=== PATIENT | male | born 1965 | race Caucasian/White ===

== ENCOUNTER 2017-01-08 14:31 | Inpatient (IN) | payer MEDICAID, OTHER ==
[~2017-01-08] VITALS: Ht 195.6 cm; Wt 122.4 kg
[~2017-01-08 14:31] MED LIST: BACT800T5 PO; CLIN1CAP5 PO; TRAM50 PO; TRIA.1%T TOP
[2017-01-08 14:33] VITALS: BP 137/89; PULSE 97; RESP 14; TEMP 99.1; O2SAT 99
--- NOTE | 2017-01-08 14:50 | PD ---
Physical Exam Time Seen by Provider: 14:48 Narrative 51-year-old male sent by the [facility]. He was called today and told that his platelet count is 14. He has history of his platelets being 36 one month ago. Also states his blood blood cell count, white blood cell count, and hemoglobin were low also. Denies anticoagulant therapy. Patient reports headache 4 days and multiple bruises. Denies chest pain, shortness of breath, abdominal pain, vomiting. Patient seen in triage. Vital signs reviewed. Patient awaiting bed placement. Data Data Last Documented VS Vital Signs Date Time Temp Pulse Resp B/P (MAP) Pulse Ox O2 Delivery O2 Flow Rate FiO2 01/08/17 14:33 99.1 97 14 137/89 (105) 99 MDM Supervised Visit with SHARLENE: Kimberli Harrison Jan 08, 2017 14:50
[2017-01-08 16:13] LABS: AUTOMATED NEUTROPHIL # 2.7 TH/MM3 (1.8-7.7); BASOPHIL % 0.5 % (0.0-2.0); EOSINOPHIL # 0.1 TH/MM3 (0-0.4); EOSINOPHIL % 1.9 % (0.0-4.0); HEMATOCRIT 32.6 % (39.0-51.0); LYMPH % 13.1 % (9.0-44.0); LYMPHOCYTE # 0.5 TH/MM3 (1.0-4.8); MEAN CELL VOLUME 100.4 FL (80.0-100.0); MEAN CORPUSCULAR HEMOGLOBIN 34.8 PG (27.0-34.0); MEAN CORPUSCULAR HGB CONC 34.7 % (32.0-36.0); MONO % 15.8 % (0.0-8.0); NEUT % 68.7 % (16.0-70.0); PLATELET COUNT 22 TH/MM3 (150-450); RED BLOOD COUNT 3.25 MIL/MM3 (4.50-5.90); RED CELL DISTRIBUTION WIDTH 15.1 % (11.6-17.2); WHITE BLOOD COUNT 3.9 TH/MM3 (4.0-11.0)
[2017-01-08 16:16] LABS: HEMO FLAGS AUTO DIFF
[2017-01-08 16:31] LABS: APTT (PATIENT) 34.7 SEC (24.3-30.1); INTERNATIONAL NORMALIZED RATIO 1.6 RATIO
[2017-01-08 16:37] LABS: BICARBONATE 26.7 MEQ/L (21.0-32.0); POTASSIUM 4.5 MEQ/L (3.5-5.1)
[2017-01-08 16:54] LABS: PLATELET ESTIMATE SMEAR LOW (NORMAL); PLATELET MORPHOLOGY NORMAL (NORMAL); SCAN/DIFF AUTO DIFF CONFIRMED
--- NOTE | 2017-01-08 17:33 | PD ---
HPI Chief Complaint: Abnormal Results Time Seen by Provider: 17:29 Travel History International Travel<30 days: No Contact w/Intl Traveler<30days: No Traveled to known affect area: No History of Present Illness HPI 51 YO M presents to the ED for evaluation of abnormal lab result at the [facility]. The patient had labs drawn yesterday, states that he was called today and told that he had "platelets of 14." And was instructed to go to the nearest emergency room. The patient states that he has been undergoing evaluation at the [facility] for approximately one year for similar issues. On presentation he complains of dull , bifrontal headache 4 days. Maximally 8 out of 10, currently 4 out of 10. He denies associated vision changes, dizziness, nausea or vomiting. He has not treated at home. He also complains of skin changes over the last year including increased bruising without known injury. He endorses low appetite and states that he has 2 bowel movements a day. He denies melena, hematochezia , BRBPR. He endorses intermittent dark color to his urine without increased urinary urgency or dysuria. He endorses drinking "a 4 pack of tall boys per day 26 years. He smokes half pack a day since teenage years. He states that he was sent to [place] to undergo panendoscopy a few months ago, but was unable to have the exam due to his abnormal lab values. [facility] Past Medical History Diminished Hearing: No Gout: Yes Integumentary: Yes (PSORIASIS) Social History Alcohol Use: Yes (8 BEERS A DAY) Tobacco Use: Yes (1/2 PPD) Substance Use: No Allergies-Medications (Allergen,Severity, Reaction): Coded Allergies: codeine (Unverified Allergy, Severe, 01/08/17) Reported Meds & Prescriptions Reported Meds & Active Scripts Active No Active Prescriptions or Reported Medications Review of Systems Except as stated in HPI: all other systems reviewed are Neg Physical Exam Narrative GENERAL: Well-nourished, well-developed pleasant white male in no acute distress. SKIN: Focused skin assessment warm/dry. Multiple bruises over the skin surface. HEAD: Normocephalic. EYES: No scleral icterus. No injection or drainage. NECK: Supple, trachea midline. No JVD or lymphadenopathy. CARDIOVASCULAR: Regular rate and rhythm without murmurs, gallops, or rubs. RESPIRATORY: Breath sounds clear and equal bilaterally. No accessory muscle use. GASTROINTESTINAL: Abdomen soft, non-tender, nondistended. Active bowel sounds. RECTAL EXAM: No masses or tenderness, stool is brown. Guaiac positive. MUSCULOSKELETAL: No cyanosis, or edema. Moves easily from standing to sitting positions. BACK: Nontender without obvious deformity. No CVA tenderness. Data Data Last Documented VS Vital Signs Date Time Temp Pulse Resp B/P (MAP) Pulse Ox O2 Delivery O2 Flow Rate FiO2 01/08/17 18:56 73 16 155/92 (113) 99 Room Air 01/08/17 14:33 99.1 Orders Orders Basic Metabolic Panel (Bmp) (01/08/17 14:50) Complete Blood Count With Diff (01/08/17 14:50) Prothrombin Time / Inr (Pt) (01/08/17 14:50) Act Partial Throm Time (Ptt) (01/08/17 14:50) Ct Brain W/O Iv Contrast(Rout) (01/08/17 ) Urinalysis - C+S If Indicated (01/08/17 18:59) Urine Culture (01/08/17 18:57) Diet Regular Basic (01/09/17 Breakfast) Ceftriaxone Inj (Rocephin Inj) (01/08/17 20:00) Consult Gastroenterology (01/08/17 ) Consult Hematology (01/08/17 ) Ibuprofen (Motrin) (01/08/17 20:15) Hepatic Functional Panel (01/08/17 20:11) Labs Laboratory Tests Test 01/08/17 15:55 01/08/17 18:57 White Blood Count 3.9 TH/MM3 Red Blood Count 3.25 MIL/MM3 Hemoglobin 11.3 GM/DL Hematocrit 32.6 % Mean Corpuscular Volume 100.4 FL Mean Corpuscular Hemoglobin 34.8 PG Mean Corpuscular Hemoglobin Concent 34.7 % Red Cell Distribution Width 15.1 % Platelet Count 22 TH/MM3 Mean Platelet Volume 9.2 FL Neutrophils (%) (Auto) 68.7 % Lymphocytes (%) (Auto) 13.1 % Monocytes (%) (Auto) 15.8 % Eosinophils (%) (Auto) 1.9 % Basophils (%) (Auto) 0.5 % Neutrophils # (Auto) 2.7 TH/MM3 Lymphocytes # (Auto) 0.5 TH/MM3 Monocytes # (Auto) 0.6 TH/MM3 Eosinophils # (Auto) 0.1 TH/MM3 Basophils # (Auto) 0.0 TH/MM3 CBC Comment AUTO DIFF Differential Comment AUTO DIFF CONFIRMED Platelet Estimate LOW Platelet Morphology Comment NORMAL Prothrombin Time 18.0 SEC Prothromb Time International Ratio 1.6 RATIO Activated Partial Thromboplast Time 34.7 SEC Blood Urea Nitrogen 6 MG/DL Creatinine 1.05 MG/DL Random Glucose 113 MG/DL Calcium Level 8.1 MG/DL Sodium Level 138 MEQ/L Potassium Level 4.5 MEQ/L Chloride Level 105 MEQ/L Carbon Dioxide Level 26.7 MEQ/L Anion Gap 6 MEQ/L Estimat Glomerular Filtration Rate 74 ML/MIN Urine Color DARK-BROWN Urine Turbidity CLOUDY Urine pH 6.0 Urine Specific [place] 1.023 Urine Protein 100 mg/dL Urine Glucose (UA) NEG mg/dL Urine Ketones TRACE mg/dL Urine Occult Blood LARGE Urine Nitrite NEG Urine Bilirubin MOD Urine Urobilinogen 8.0 MG/DL Urine Leukocyte Esterase SMALL Urine RBC /hpf Urine WBC 26 /hpf Urine Amorphous Sediment OCC Urine Bacteria MANY /hpf Urine Mucus MANY /lpf Microscopic Urinalysis Comment CULTURE INDICATED MDM Medical Decision Making Medical Screen Exam Complete: Yes Emergency Medical Condition: Yes Differential Diagnosis cirrhosis versus GI bleed versus leukemia versus chronic alcoholism versus FRANCESCA versus metabolic derangement versus other Narrative Course 51 YO M presents to the ED for evaluation of abnormal lab result at the [facility]. The patient had labs drawn yesterday, states that he was called today and told that he had "platelets of 14." The patient states that he has been undergoing evaluation at the [facility] for approximately one year for similar issues. On presentation he complains of dull, bifrontal headache 4 days. Maximally 8/10, currently 4/10. He denies associated vision changes, dizziness, nausea or vomiting. He also complains increased bruising without known injury. He endorses low appetite. He endorses dark urine. He denies diarrhea, melena, hematochezia, BRBPR, denies dysuria. He endorses drinking "a 4 pack of tall boys per day 26 years. He smokes half pack a day since teenage years. He states that he was sent to [place] to undergo panendoscopy a few months ago, but was unable to have the exam due to his abnormal lab values. Vitals reviewed. Physical exam revealed up on the white male in no acute distress. He does have several bruises over the skin surface. No focal neuro deficits. Chest CTAB, abdomen soft, nontender. No lower extremity edema. CBC: WBC 3.9. RBCs 3.25. Hemoglobin 11.3. Hematocrit 32.6. MCV 100.4. MCH 34.8. Platelets 22. Coags: INR 1.6. BNP: BUN 6, creatinine 1.05. Calcium 8.1. UA: Dark brown, large occult blood, small leukocyte esterase, 26 WBCs, many bacteria. CT brain: Normal exam for patient this age per radiology read. Patient was administered 1 g of Rocephin, [address] with hematology and gastroenterology. Urology consult may also be appropriate for this patient. Plan to discuss with the medicine team. I spoke with Dr. Myers who agrees to accept the patient to the medicine service. Please see medicine notes for disposition. [facility] Point of Care Internal Pos. & Neg. Controls: Passed Fecal Specimen Occult Blood: Positive Scripts No Active Prescriptions or Reported Meds Vanessa Culver Jan 08, 2017 17:33
[2017-01-08 18:56] VITALS: BP 155/92; PULSE 73; RESP 16; O2SAT 99
[2017-01-08 19:29] LABS: BACTERIA, URINE MANY /hpf; BLOOD, URINE LARGE (NEG); COMMENT (UR) CULTURE INDICATED; CULTURE IF INDICATED CULTURE INDICATED; GLUCOSE,URINE NEG (NEG); KETONE, URINE TRACE mg/dL (NEG); MUCUS URINE MANY /lpf (OCC); NITRITE,URINE NEG (NEG)
[2017-01-08 19:30] LABS: URINE COLOR DARK-BROWN (YELLW/STRAW)
--- NOTE | 2017-01-08 19:57 | RADRPT ---
EXAM DATE/TIME: 01/08/2017 19:13 [facility] COMPARISON: CT BRAIN W/O CONTRAST, July 23, 2013, 9:37. INDICATIONS : Abnormal labs, altered mental status. RADIATION DOSE: 56.35 CTDIvol (mGy) MEDICAL HISTORY : gout SURGICAL HISTORY : None. ENCOUNTER: Initial ACUITY: 1 day PAIN SCALE: 7/10 LOCATION: cranial TECHNIQUE: Multiple contiguous axial images were obtained of the head. Using automated exposure control and adj ustment of the mA and/or kV according to patient size, radiation dose was kept as low as reasonably a chievable to obtain optimal diagnostic quality images. DICOM format image data is available electro nically for review and comparison. FINDINGS: CEREBRUM: The ventricles are normal for age. No evidence of midline shift, mass lesion, hemorrhage or acute in farction. No extra-axial fluid collections are seen. POSTERIOR FOSSA: The cerebellum and brainstem are intact. The 4th ventricle is midline. The cerebellopontine angle i s unremarkable. Stable cisterna magna. EXTRACRANIAL: The visualized portion of the orbits is intact. SKULL: The calvaria is intact. No evidence of skull fracture. CONCLUSION: Normal examination for a patient of this age. No significant change has occurred. Quinten Smiley MD on January 08, 2017 at 19:56 Board Certified Radiologist. This report was verified electronically.
[2017-01-08] MEDS ORDERED: cefTRIAXone INJ 1,000 MG in SODIUM CHLORIDE 0.9% INJ 100 ML IV ONE (20:00)
[2017-01-08] MEDS ORDERED: IBUPROFEN 800 MG TAB PO ONE (20:15)
[2017-01-08] MEDS ORDERED: SODIUM CHLORIDE 0.9% FLUSH 10 ML FLUSH IV FLUSH PRN ×2 (20:45)
[2017-01-08] MEDS ORDERED: LORazepam 1 MG TAB PO PRN (20:45)
[2017-01-08] MEDS ORDERED: LORazepam 2 MG/ML VIAL IV PUSH PRN ×4 (20:45)
[2017-01-08] MEDS ORDERED: NALOXONE HCL 0.4 MG/ML AMP IV PUSH PRN (20:45)
[2017-01-08] MEDS ORDERED: LORazepam 2 MG TAB PO PRN (20:45)
[2017-01-08] MEDS ORDERED: PHYTONADIONE 5 MG TAB PO ONE (20:45)
[2017-01-08] MEDS ORDERED: FLUMAZENIL 0.5 MG/5 ML VIAL IV PUSH PRN (20:45)
[2017-01-08] MEDS ORDERED: SODIUM CHLORIDE 0.9% FLUSH 10 ML FLUSH IV FLUSH SCH (21:00)
[2017-01-08 21:04] LABS: INDIRECT BILIRUBIN 1.7 MG/DL (0.0-0.8); TOTAL BILIRUBIN ADULT 4.4 MG/DL (0.2-1.0)
[2017-01-08 21:13] VITALS: BP 132/74; PULSE 80; RESP 20; TEMP 98.6; O2SAT 98
[2017-01-08] MEDS: SODIUM CHLORIDE 0.9% FLUSH 10 ML FLUSH IV FLUSH SCH (21:20)
[2017-01-08 22:47] LABS: HEMATOCRIT 28.9 % (39.0-51.0)
[2017-01-08 22:55] LABS: REVIEW FLAG FINAL
[2017-01-08 23:00] VITALS: PULSE 66
[2017-01-09] VITALS (10 sets, daily range): BP systolic 118–149; BP diastolic 69–86; PULSE 63–84; RESP 18–20; TEMP 98.6–99.1; O2SAT 87–99
--- NOTE | 2017-01-09 01:04 | HHI.HP ---
[facility] Service [facility] Primary Care Physician [facility] Admission Diagnosis hematuria, GI bleed, pancytopenia, elevated INR Diagnoses: Travel History International Travel<30 Days: No Contact w/Intl Traveler <30 Da: No Traveled to Known Affected Are: No History of Present Illness was called [place] [facility] [place] [id number] denies bleeding from anywhere was supposed to have egd and colonscopy at [facility], cancelled due to platelet 36,000 then liver sono outpatient said enlarged had blood work nausea and little bit of dry heaves in past one week did throw up a while back - he thinks throwing up was from anxiety, but not common Review of Systems Except as stated in HPI: all other systems reviewed are Neg Past Family Social History Past Medical History possible liver cirrhosis possible psoriasis Past Surgical History left index finger reattached Allergies: Coded Allergies: codeine (Unverified Allergy, Severe, 01/08/17) Family History grandfather from father side- dm grandmother from father side- in sleep mother- htn uncle- cancer Social History smokes about 1/3 of a pack a day drinks etoh about 4 beers about 5 x a week never drugs Physical Exam Vital Signs Vital Signs Date Time Temp Pulse Resp B/P (MAP) Pulse Ox O2 Delivery O2 Flow Rate FiO2 01/09/17 00:29 98.9 20 122/74 98 01/08/17 23:00 66 01/08/17 21:14 01/08/17 21:13 98.6 80 20 132/74 (93) 98 01/08/17 18:56 73 16 155/92 (113) 99 Room Air 01/08/17 18:23 Room Air 01/08/17 14:33 99.1 97 14 137/89 (105) 99 Physical Exam GENERAL: This is a well-nourished, well-developed patient, in no apparent distress. SKIN: No rashes, ecchymoses or lesions. Cool and dry. HEAD: Atraumatic. Normocephalic. No temporal or scalp tenderness. EYES: Pupils equal round and reactive. Extraocular motions intact. No scleral icterus. No injection or drainage. ENT: Nose without bleeding, purulent drainage or septal hematoma. Throat without erythema, tonsillar hypertrophy or exudate. Uvula midline. Airway patent. NECK: Trachea midline. No JVD or lymphadenopathy. Supple, nontender, no meningeal signs. CARDIOVASCULAR: Regular rate and rhythm without murmurs, gallops, or rubs. RESPIRATORY: Clear to auscultation. Breath sounds equal bilaterally. No wheezes , rales, or rhonchi. GASTROINTESTINAL: Abdomen soft, non-tender, nondistended. No hepato-splenomegaly , or palpable masses. No guarding. MUSCULOSKELETAL: Extremities without clubbing, cyanosis, or edema. No joint tenderness, effusion, or edema noted. No calf tenderness. Negative Homans sign bilaterally. NEUROLOGICAL: Awake and alert. Cranial nerves II through XII intact. Motor and sensory grossly within normal limits. Five out of 5 muscle strength in all muscle groups. Normal speech. Laboratory Laboratory Tests Test 01/08/17 15:55 01/08/17 18:57 01/08/17 22:30 White Blood Count 3.9 Red Blood Count 3.25 Hemoglobin 11.3 10.1 Hematocrit 32.6 28.9 Mean Corpuscular Volume 100.4 Mean Corpuscular Hemoglobin 34.8 Mean Corpuscular Hemoglobin Concent 34.7 Red Cell Distribution Width 15.1 Platelet Count 22 Mean Platelet Volume 9.2 Neutrophils (%) (Auto) 68.7 Lymphocytes (%) (Auto) 13.1 Monocytes (%) (Auto) 15.8 Eosinophils (%) (Auto) 1.9 Basophils (%) (Auto) 0.5 Neutrophils # (Auto) 2.7 Lymphocytes # (Auto) 0.5 Monocytes # (Auto) 0.6 Eosinophils # (Auto) 0.1 Basophils # (Auto) 0.0 CBC Comment AUTO DIFF Differential Comment AUTO DIFF CONFIRMED Platelet Estimate LOW Platelet Morphology Comment NORMAL Prothrombin Time 18.0 Prothromb Time International Ratio 1.6 Activated Partial Thromboplast Time 34.7 Blood Urea Nitrogen 6 Creatinine 1.05 Random Glucose 113 Calcium Level 8.1 Sodium Level 138 Potassium Level 4.5 Chloride Level 105 Carbon Dioxide Level 26.7 Anion Gap 6 Estimat Glomerular Filtration Rate 74 Total Bilirubin 4.4 Direct Bilirubin 2.7 Indirect Bilirubin 1.7 Aspartate Amino Transf (AST/SGOT) 86 Alanine Aminotransferase (ALT/SGPT) 26 Alkaline Phosphatase 157 Total Protein 8.1 Albumin 3.0 Urine Color DARK-BROWN Urine Turbidity CLOUDY Urine pH 6.0 Urine Specific [place] 1.023 Urine Protein 100 Urine Glucose (UA) NEG Urine Ketones TRACE Urine Occult Blood LARGE Urine Nitrite NEG Urine Bilirubin MOD Urine Urobilinogen 8.0 Urine Leukocyte Esterase SMALL Urine RBC Urine WBC 26 Urine Amorphous Sediment OCC Urine Bacteria MANY Urine Mucus MANY Microscopic Urinalysis Comment CULTURE INDICATED Date/Time Source Procedure Growth Status 01/08/17 18:57 Urine Clean Catch Urine Culture Pending Received Result Diagram: 01/08/17 2230 01/08/17 1555 Caprini VTE Risk Assessment Caprini Risk Assessment Model Point Value = 1 Point Value = 2 Point Value = 3 Point Value = 5 Age 41-60 Minor surgery BMI > 25 kg/m2 Swollen legs Varicose veins or History of unexplained or recurrent spontaneous Oral contraceptives or hormone replacement Sepsis (< 1 month) Serious lung disease, including pneumonia (< 1 month) Abnormal pulmonary function Acute myocardial infarction Congestive heart failure (< 1 month) History of inflammatory bowel disease Medical patient at bed rest Age 61-74 Arthroscopic surgery Major open surgery (> 45 min) Laparoscopic surgery (> 45 min) Malignancy Confined to bed (> 72 hours) Immobilizing plaster cast Central venous access Age >= 75 History of VTE Family history of VTE Factor V Leiden Prothrombin [id number] Lupus anticoagulant Anticardiolipin antibodies Elevated serum homocysteine Heparin-induced thrombocytopenia Other congenital or acquired thrombophilia Stroke (< 1 month) Elective arthroplasty Hip, pelvis, or leg fracture Acute spinal cord injury (< 1 month) Prophylaxis Regimen Total Risk Factor Score Risk Level Prophylaxis Regimen 0-1 Low Early ambulation 2 Moderate Order ONE of the following: *Sequential Compression Device (SCD) *Heparin 5000 units SQ BID 3-4 Higher Order ONE of the following medications: *Heparin 5000 units SQ TID *Enoxaparin/Lovenox 40 mg SQ daily (WT < 150 kg, CrCl > 30 mL/min) *Enoxaparin/Lovenox 30 mg SQ daily (WT < 150 kg, CrCl > 10-29 mL/min) *Enoxaparin/Lovenox 30 mg SQ BID (WT < 150 kg, CrCl > 30 mL/min) AND/OR *Sequential Compression Device (SCD) 5 or more Highest Order ONE of the following medications: *Heparin 5000 units SQ TID (Preferred with Epidurals) *Enoxaparin/Lovenox 40 mg SQ daily (WT < 150 kg, CrCl > 30 mL/min) *Enoxaparin/Lovenox 30 mg SQ daily (WT < 150 kg, CrCl > 10-29 mL/min) *Enoxaparin/Lovenox 30 mg SQ BID (WT < 150 kg, CrCl > 30 mL/min) AND *Sequential Compression Device (SCD) Assessment and Plan Assessment and Plan thrombocytopenia Physician Certification Order for Inpatient Services The services are ordered in accordance with Medicare regulations or non- Medicare payer requirements, as applicable. In the case of services not specified as inpatient-only, they are appropriately provided as inpatient services in accordance with the 2-midnight benchmark. days is the estimated time the patient will need to remain in the hospital, assuming treatment plan goals are met and no additional complications. Yulissa Christine MD Jan 09, 2017 01:04
[2017-01-09 06:08] LABS: BICARBONATE 28.3 MEQ/L (21.0-32.0); POTASSIUM 3.6 MEQ/L (3.5-5.1)
[2017-01-09 08:19] LABS: AUTOMATED NEUTROPHIL # 1.3 TH/MM3 (1.8-7.7); BASOPHIL % 0.9 % (0.0-2.0); EOSINOPHIL # 0.1 TH/MM3 (0-0.4); EOSINOPHIL % 3.6 % (0.0-4.0); HEMATOCRIT 27.8 % (39.0-51.0); LYMPH % 19.9 % (9.0-44.0); LYMPHOCYTE # 0.5 TH/MM3 (1.0-4.8); MEAN CELL VOLUME 100.2 FL (80.0-100.0); MEAN CORPUSCULAR HEMOGLOBIN 34.5 PG (27.0-34.0); MEAN CORPUSCULAR HGB CONC 34.4 % (32.0-36.0); MONO % 19.1 % (0.0-8.0); NEUT % 56.5 % (16.0-70.0); RED BLOOD COUNT 2.77 MIL/MM3 (4.50-5.90); RED CELL DISTRIBUTION WIDTH 15.4 % (11.6-17.2); WHITE BLOOD COUNT 2.3 TH/MM3 (4.0-11.0)
[2017-01-09 08:23] LABS: HEMO FLAGS AUTO DIFF
[2017-01-09 08:28] LABS: PLATELET COUNT 16 TH/MM3 (150-450)
[2017-01-09] MEDS ORDERED: ACETAMINOPHEN 500 MG CPLT PO PRN (09:00)
[2017-01-09] MEDS ORDERED: traMADol HCL 50 MG TAB PO PRN (09:00)
[2017-01-09] MEDS: PHYTONADIONE 5 MG TAB PO SCH (09:01)
[2017-01-09] MEDS: chlordiazePOXIDE 25 MG CAP PO SCH ×3 (09:02→18:53)
[2017-01-09 09:05] LABS: PLATELET ESTIMATE SMEAR LOW (NORMAL); PLATELET MORPHOLOGY NORMAL (NORMAL); SCAN/DIFF AUTO DIFF CONFIRMED
--- NOTE | 2017-01-09 09:51 | MB ---
cc: PRAMOD MCINTOSH TWETHIDA MD DATE OF 1965 DATE OF SERVICE 01/09/[address] Christine CHIEF COMPLAINT Dr. Christine requests consultation for Mr. Del Cid regarding pancytopenia. HISTORY OF PRESENT ILLNESS Mr. Del Cid is a 51-year-old man, a patient of the [facility] system. He has a history of chronic tobacco use. He admits to drinking four beers a day. On review of the electronic medical records, he has admitted to more beers per day than what he tells me. He was seen by a liver specialist at the [facility] in [place]. He is not certain of the outcome of that consultation. He has never seen a corporate real estate specialist. He had lab work done at the [facility] and was found to have significantly decreased platelet count of 14,000. He was referred to the emergency room where a CBC was performed. His white blood cell count is 3.9, hemoglobin 11.3, platelet count 22,000. He was having a headache. A head CT was normal. There is no change and no signs of bleeding. He was unfortunately given ibuprofen and given FFP. He denies any overt bleeding yesterday. He denies any cause for his exacerbation. He denies being jaundiced; however, his bilirubin was noted to be 4.4; back in August it was 2.3. His AST is elevated at 86, ALT of 22, alkaline phosphatase 157. He denies any fevers, chills or night sweats. He notices more bruising over the last several weeks. Denies any bleeding. No melena, no bright red blood per rectum. He reports having a history of vomiting of blood before. He denies any of those symptoms now. PAST MEDICAL HISTORY 1. Alcoholic liver disease. 2. Possible cirrhosis. 3. Hyperbilirubinemia. 4. Pancytopenia. 5. Psoriasis. PAST SURGICAL HISTORY Left index finger surgery. FAMILY HISTORY No family history of cancer. Mother and father still alive, in good health in their 70s. ALLERGIES CODEINE. SOCIAL HISTORY He smokes one-third pack a day. He drinks four beers a day. Denies any illicit drug use. CURRENT MEDICATIONS 1. Ceftriaxone. 2. Phytonadione 3. Naloxone p.r.n. PHYSICAL EXAMINATION VITAL SIGNS: Temperature 98.9, heart rate 66, respiratory rate 20, blood pressure 141/78, saturation 97%. GENERAL: Mr. Del Cid is a well-developed, well-nourished jaundiced man. He is also tanned. HEENT: His pupils are reactive to light and accommodation. Conjunctivae pink. Sclerae icteric. Oropharynx is clear. NECK: Supple. LUNGS: Clear. CARDIOVASCULAR EXAM: Normal rate and rhythm. ABDOMEN: Large. No organomegaly appreciated. LOWER EXTREMITIES: No edema. Good pulses. NEUROLOGICAL EXAM: Nonfocal. SKIN: There is bruising over the both lower extremities, medial aspect of the right knee and his right forearm. LABORATORY DATA As described above. A.m. CBC shows a white blood cell count of 2.3, hemoglobin 9.6, platelet count is 16,000. ASSESSMENT AND PLAN Mr. Del Cid is a 51-year-old man with history of psoriasis and alcoholic liver disease. He appears to have cirrhosis at this point. I recommend consultation with gastroenterology to assist in management of his liver cirrhosis. I will obtain ultrasound to evaluate the liver and spleen size. We discussed the nature of the pancytopenia in patients with liver disease. On the one hand there is bone marrow suppression from his alcohol intake. Secondary effect is that the thrombopoietin is produced in the liver. Patient's with liver disease and cirrhosis have decreased amount of thrombopoietin that decreases the production of platelets from their progenitor cells. I recommend conservative management and abstinence. Nutritional deficiencies will be excluded. Peripheral smear will be reviewed. LDH will be checked to rule out microangiopathic hemolytic process. Does not look like hemolysis. I defer from bone marrow biopsy evaluation. We discussed this may be necessary in his workup for a pancytopenia pending on the liver consultation. He may also follow up with hematology in [place] and have his bone marrow biopsy done there. For now NSAIDs and aspirin will be avoided. We will monitor his headaches. Tramadol can be offered. Pramod Mcintosh MD RAD/SSB /8:39 AM /9:10 AM
[2017-01-09 10:22] LABS: RETIC % 2.1 % (0.4-3.0)
--- NOTE | 2017-01-09 10:27 | RADRPT ---
EXAM DATE/TIME: 01/09/2017 09:33 [facility] COMPARISON: No previous studies available for comparison. INDICATIONS : Abnormal labs. MEDICAL HISTORY : Arthritis. Head trauma. Migraines. Gout. Left groin hernia. Liver disease. Psoriasis. SURGICAL HISTORY : Left index finger sutured. ENCOUNTER: Initial ACUITY: 1 day PAIN SCORE: 0/10 LOCATION: Bilateral upper quadrant MEASUREMENTS: LIVER: 19.5 cm length COMMON DUCT: 4 mm RIGHT KIDNEY: 12.9 x 6.3 x 6.8 cm SPLEEN: 18.7 cm length FINDINGS: Ultrasound of the upper abdomen demonstrates increased echogenicity of the liver compatible with fatt y infiltration or hepatocellular disease. The spleen is enlarged. There findings of portal hypertensi on with only minimal flow which is phasic. The right kidney is unremarkable. The pancreas demonstrate s no evidence of mass and there is no dilatation of the pancreatic duct. The gallbladder wall is thic kened but no stones are identified. CONCLUSION: 1. Findings of cirrhosis with portal vein abnormalities chest and hypertension or thrombus. 2. Splenomegaly Maulik Green MD on January 09, 2017 at 10:23 Board Certified Radiologist. This report was verified electronically.
[2017-01-09 10:29] LABS: REVIEW FLAG FINAL
--- NOTE | 2017-01-09 10:52 | PD.CONS ---
HPI History of Present Illness This is a 51 year old male patient with liver disease and pancytopenia, who [facility] being [facility], and was referred to the hospital for further evaluation and treatment of severe pancytopenia after having labs done as an outpatient. He reports that he was seen by a wigs salesperson in [facility] through the [facility] and was told that he had liver disease, suspected cirrhosis about 3 months ago. An EGD/Colonoscopy was scheduled about 2 months ago. He reports that he took the bowel prep, but the procedure was cancelled because his platelets were 36,000. He came to the ER and was found to have WBC 3.9, H/ H 11.3/32.6, Plt 22. Today, these dropped to WBC 2.3, 9.6/27.8, Plt 16,000. GI was consulted for possible GI bleeding. The patient has not seen any obvious GI bleeding. He denies any decreased appetite, weight loss, nausea, vomiting, heartburn, reflux, abdominal pain, bowel changes, constipation, diarrhea, melena, or hematochezia. He reports that he was told that he had blood in his urine based on a urinalysis, but he has not seen any. 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 He reports that he drank heavily in college, but now drinks 4 beers per day. He denies any history of hepatitis or known liver disease in family members. He reports that he used to have some swelling in his lower extremities, requiring diuretics, but he no longer takes these. (Jazz Kan) PFSH Past Medical History Alcoholic liver disease, possible liver cirrhosis Pancytopenia Psoriasis Past Surgical History Left index finger surgery (Jazz Kan) Coded Allergies: codeine (Unverified Allergy, Severe, 01/08/17) Medications Allergies Coded Allergies Type Severity Reaction Last Updated Verified codeine Allergy Severe 01/08/17 No Active Scripts Medications Dose Route/Sig Max Daily Dose Days Date Category No Active Prescriptions or Reported Medications Rx Family History PGM had dm Mother had htn One distant relative with unknown cancer No family hx of liver disease Social History Smokes about 1/3 of a pack a day He drinks 4 beers per day No illicit drug use (Jazz Kan) Review of Systems Constitutional: DENIES: Fatigue, Fever, Weight loss, Chills, Change in appetite Respiratory: COMPLAINS OF: Cough Cardiovascular: DENIES: Chest pain Gastrointestinal: DENIES: Abdominal pain, Black stools, Bloody stools, Constipation, Diarrhea, Nausea, Vomiting, Difficulty Swallowing, Anorexia, Odynophagia, Swelling of Abdomen, Heartburn, Hematemesis Hematologic/lymphatic: COMPLAINS OF: Bruising Neurologic: DENIES: Headache Psychiatric: DENIES: Confusion (Jazz Kan) GI Exam Vitals I&O Vital Signs Date Time Temp Pulse Resp B/P (MAP) Pulse Ox O2 Delivery O2 Flow Rate FiO2 01/09/17 03:36 98.9 66 20 141/78 97 01/09/17 03:21 98.9 64 20 118/74 96 01/09/17 00:48 99.0 77 20 126/75 97 01/09/17 00:29 98.9 20 122/74 98 01/08/17 23:00 66 01/08/17 21:14 01/08/17 21:13 98.6 80 20 132/74 (93) 98 01/08/17 18:56 73 16 155/92 (113) 99 Room Air 01/08/17 18:23 Room Air 01/08/17 14:33 99.1 97 14 137/89 (105) 99 I/O 01/08/17 01/08/17 01/08/17 01/09/17 01/09/17 01/09/17 07:00 15:00 23:00 07:00 15:00 23:00 Intake Total 100 ml 1282 ml Balance 100 ml 1282 ml Intake Oral 0 ml IV Total 100 ml 50 ml FFP 1172 ml Blood Product IV Normal Saline Flush 60 ml # Voids 1 2 # Bowel Movements 0 Imaging Last Impressions Liver Ultrasound 01/09/17 0000 Signed Impressions: Service Date/Time: December 09:33 - CONCLUSION: 1. Findings of cirrhosis with portal vein abnormalities chest and hypertension or thrombus. 2. Splenomegaly Maulik Green MD Head CT 01/08/17 0000 Signed Impressions: Service Date/Time: Sunday, January 08, 2017 19:13 - CONCLUSION: Normal examination for a patient of this age. No significant change has occurred. Quinten J. Siragusa, MD Laboratory Test 01/08/17 15:55 01/08/17 18:57 01/08/17 22:30 01/09/17 05:09 White Blood Count 3.9 TH/MM3 Red Blood Count 3.25 MIL/MM3 Hemoglobin 11.3 GM/DL 10.1 GM/DL Hematocrit 32.6 % 28.9 % Mean Corpuscular Volume 100.4 FL Mean Corpuscular Hemoglobin 34.8 PG Mean Corpuscular Hemoglobin Concent 34.7 % Red Cell Distribution Width 15.1 % Platelet Count 22 TH/MM3 Mean Platelet Volume 9.2 FL Neutrophils (%) (Auto) 68.7 % Lymphocytes (%) (Auto) 13.1 % Monocytes (%) (Auto) 15.8 % Eosinophils (%) (Auto) 1.9 % Basophils (%) (Auto) 0.5 % Neutrophils # (Auto) 2.7 TH/MM3 Lymphocytes # (Auto) 0.5 TH/MM3 Monocytes # (Auto) 0.6 TH/MM3 Eosinophils # (Auto) 0.1 TH/MM3 Basophils # (Auto) 0.0 TH/MM3 CBC Comment AUTO DIFF Differential Comment AUTO DIFF CONFIRMED Platelet Estimate LOW Platelet Morphology Comment NORMAL Prothrombin Time 18.0 SEC Prothromb Time International Ratio 1.6 RATIO Activated Partial Thromboplast Time 34.7 SEC Blood Urea Nitrogen 6 MG/DL 9 MG/DL Creatinine 1.05 MG/DL 0.97 MG/DL Random Glucose 113 MG/DL 89 MG/DL Calcium Level 8.1 MG/DL 7.7 MG/DL Sodium Level 138 MEQ/L 141 MEQ/L Potassium Level 4.5 MEQ/L 3.6 MEQ/L Chloride Level 105 MEQ/L 106 MEQ/L Carbon Dioxide Level 26.7 MEQ/L 28.3 MEQ/L Anion Gap 6 MEQ/L 7 MEQ/L Estimat Glomerular Filtration Rate 74 ML/MIN 82 ML/MIN Total Bilirubin 4.4 MG/DL Direct Bilirubin 2.7 MG/DL Indirect Bilirubin 1.7 MG/DL Aspartate Amino Transf (AST/SGOT) 86 U/L Alanine Aminotransferase (ALT/SGPT) 26 U/L Alkaline Phosphatase 157 U/L Total Protein 8.1 GM/DL Albumin 3.0 GM/DL Urine Color DARK-BROWN Urine Turbidity CLOUDY Urine pH 6.0 Urine Specific [place] 1.023 Urine Protein 100 mg/dL Urine Glucose (UA) NEG mg/dL Urine Ketones TRACE mg/dL Urine Occult Blood LARGE Urine Nitrite NEG Urine Bilirubin MOD Urine Urobilinogen 8.0 MG/DL Urine Leukocyte Esterase SMALL Urine RBC /hpf Urine WBC 26 /hpf Urine Amorphous Sediment OCC Urine Bacteria MANY /hpf Urine Mucus MANY /lpf Microscopic Urinalysis Comment CULTURE INDICATED Test 01/09/17 07:25 White Blood Count 2.3 TH/MM3 Red Blood Count 2.77 MIL/MM3 Hemoglobin 9.6 GM/DL Hematocrit 27.8 % Mean Corpuscular Volume 100.2 FL Mean Corpuscular Hemoglobin 34.5 PG Mean Corpuscular Hemoglobin Concent 34.4 % Red Cell Distribution Width 15.4 % Platelet Count 16 TH/MM3 Mean Platelet Volume 8.3 FL Neutrophils (%) (Auto) 56.5 % Lymphocytes (%) (Auto) 19.9 % Monocytes (%) (Auto) 19.1 % Eosinophils (%) (Auto) 3.6 % Basophils (%) (Auto) 0.9 % Neutrophils # (Auto) 1.3 TH/MM3 Lymphocytes # (Auto) 0.5 TH/MM3 Monocytes # (Auto) 0.4 TH/MM3 Eosinophils # (Auto) 0.1 TH/MM3 Basophils # (Auto) 0.0 TH/MM3 CBC Comment AUTO DIFF Differential Comment AUTO DIFF CONFIRMED Platelet Estimate LOW Platelet Morphology Comment NORMAL Blood Smear Pathologist Review Reticulocyte Count 2.1 % Absolute Reticulocyte Count 56.1 MIL/L Date/Time Source Procedure Growth Status 01/08/17 18:57 Urine Clean Catch Urine Culture Pending Received Physical Examination HEENT: Normocephalic; atraumatic; no jaundice. CHEST: CTA CARDIAC: RRR ABDOMEN: Soft, nondistended, nontender; hepatosplenomegaly; bowel sounds are present in all four quadrants. EXTREMITIES: No clubbing, cyanosis, or edema. SKIN: Normal; no rash; no jaundice. NEWS LIBRARY DIRECTOR: No focal deficits; alert and oriented times three. (Jazz Kan) Assessment and Plan Plan ASSESSMENT: - Severe Pancytopenia. Referred [facility] ER [facility] Pt has evidence of liver cirrhosis based on US imaging and lab work. He was seen by a wigs salesperson through the [facility] 3 months ago at [facility]. He states he was scheduled for a colonoscopy 2 months ago, but it was cancelled secondary to thrombocytopenia. WBC 2.3, 9.6/27.8, Plt 16,000. He is not having any active bleeding and denies any GI symptoms. Hematology is following- Retic count 2.1, LDH, Fibrinogen, Direct james, blood smear, haptoglobin is pending. She feels that this is likely secondary to his underlying liver disease and recommend GI workup for liver cirrhosis. - Coagulopathy. PT 18.0, INR 1.6, APTT 34.7. He had 2 units FFP and Vitamin K has been ordered. - Elevated LFTs, Liver cirrhosis. Told 3 months ago that he had alcoholic liver disease, possible cirrhosis, but states it was never determined if he actually had cirrhosis. He drank heavily in college and has drank 4 beers per day for many years. No hx of hepatitis. Denies family hx of liver disease. Liver US (01/09/17)----> findings of cirrhosis with portal vein abnormalities chest and hypertension or thrombus, splenomegaly. T. Bili 4.4, Direct 2.7, Indirect 1.7, AST 86, ALT 26, Alk Phosph 157. MELD 17. DF 32.0. Will order liver workup and start prednisone for alcoholic hepatitis - Alcoholic hepatitis. DF 32, start prednisone. - Abnormal U/A, Cx pending. Ceftriaxone. - Psoriasis per attending. PLAN: - 2 gram Sodium diet - AFP level - Hepatitis profile - BRIAN, AMA, ASMA - Ferritin - Iron saturation - Ceruloplasmin, Alpha 1 Antitrypsin - Add prednisone 20mg po daily for alcoholic hepatitis - Add protonix 40mg po daily - DT precautions - CBC, PT/INR, Ammonia, CMP in am - Hematology following - Supportive care - Further recommendations to follow based on results of above - Will need EGD/Colonoscopy when platelets allow - Pt seen and examined by Dr. Ruiz and myself and this note is written on his behalf (Jazz Kan) Physician Comments Seen and examined with BON< no active bleeding. Liver rojas ordered. Egd/ colonoscopy planned for next week. Will follow, thank you (Andre Ruiz MD) Jazz Kan Jan 09, 2017 10:51 Andre Ruiz MD Jan 09, 2017 16:54
[2017-01-09] MEDS: TAMSULOSIN HCL 0.4 MG CAP PO SCH (14:53)
[2017-01-09] MEDS: predniSONE 20 MG TAB PO SCH (14:53)
[2017-01-09] MEDS: PANTOPRAZOLE SOD 40 MG DELAYED RELEASE TAB PO SCH (14:54)
[2017-01-09 15:16] LABS: HEMATOCRIT 30.3 % (39.0-51.0)
[2017-01-09 15:23] LABS: REVIEW FLAG FINAL
[2017-01-09 15:39] LABS: TRANSFERRIN IRON PROFILE 200 MG/DL (200-360)
[2017-01-09 15:42] LABS: FERRITIN 111 NG/ML (26-388)
[2017-01-09 16:00] LABS: APTT (PATIENT) 35.6 SEC (24.3-30.1); INTERNATIONAL NORMALIZED RATIO 1.6 RATIO; PROTHROMBIN TIME - PATIENT 17.6 SEC (9.8-11.6)
[2017-01-09] MEDS: SODIUM CHLORIDE 0.9% FLUSH 10 ML FLUSH IV FLUSH SCH (19:42)
[2017-01-09] MEDS ORDERED: cefTRIAXone INJ 1,000 MG in SODIUM CHLORIDE 0.9% INJ 100 ML IV SCH (20:00)
[2017-01-09 21:09] LABS: HEMATOCRIT 29.4 % (39.0-51.0)
[2017-01-09 21:12] LABS: REVIEW FLAG FINAL
[2017-01-10] VITALS: BP 134/81; PULSE 56; RESP 18; TEMP 98.4; O2SAT 99
[2017-01-10 04:00] VITALS: BP 132/80; PULSE 60; RESP 16; TEMP 98.2; O2SAT 97
[2017-01-10 08:00] VITALS: BP 152/88; PULSE 71; RESP 16; TEMP 97.8; O2SAT 98
[2017-01-10 08:02] VITALS: PULSE 60
[2017-01-10] MEDS: chlordiazePOXIDE 25 MG CAP PO SCH ×3 (08:04→17:56)
[2017-01-10] MEDS: PHYTONADIONE 5 MG TAB PO SCH (08:04)
[2017-01-10] MEDS: SODIUM CHLORIDE 0.9% FLUSH 10 ML FLUSH IV FLUSH SCH (08:05)
[2017-01-10] MEDS: PANTOPRAZOLE SOD 40 MG DELAYED RELEASE TAB PO SCH (08:05)
[2017-01-10] MEDS: predniSONE 20 MG TAB PO SCH (08:05)
[2017-01-10] MEDS: TAMSULOSIN HCL 0.4 MG CAP PO SCH (08:05)
[2017-01-10 08:11] LABS: BASOPHIL % 0.3 % (0.0-2.0); EOSINOPHIL % 1.2 % (0.0-4.0); HEMATOCRIT 29.5 % (39.0-51.0); LYMPH % 18.4 % (9.0-44.0); LYMPHOCYTE # 0.6 TH/MM3 (1.0-4.8); MEAN CELL VOLUME 100.1 FL (80.0-100.0); MEAN CORPUSCULAR HEMOGLOBIN 34.2 PG (27.0-34.0); MEAN CORPUSCULAR HGB CONC 34.2 % (32.0-36.0); MONO % 15.9 % (0.0-8.0); NEUT % 64.2 % (16.0-70.0); RED BLOOD COUNT 2.95 MIL/MM3 (4.50-5.90); RED CELL DISTRIBUTION WIDTH 15.5 % (11.6-17.2); WHITE BLOOD COUNT 3.2 TH/MM3 (4.0-11.0)
[2017-01-10 08:13] LABS: INTERNATIONAL NORMALIZED RATIO 1.6 RATIO; PROTHROMBIN TIME - PATIENT 18.1 SEC (9.8-11.6)
[2017-01-10 08:18] LABS: HEMO FLAGS AUTO DIFF
[2017-01-10 08:21] LABS: PLATELET COUNT 19 TH/MM3 (150-450)
[2017-01-10 09:03] LABS: BLOOD UREA NITROGEN 10 MG/DL (7-18); GLOMERULAR FILTRATION RATE 85 ML/MIN (>89)
[2017-01-10 09:04] LABS: ALKALINE PHOSPHATASE 145 U/L (45-117); ALT (GPT) 23 U/L (12-78); ANION GAP 8 MEQ/L (5-15); AST (GOT) 62 U/L (15-37); BICARBONATE 25.2 MEQ/L (21.0-32.0); CHLORIDE 102 MEQ/L (98-107); POTASSIUM 3.7 MEQ/L (3.5-5.1); SODIUM (NA) 135 MEQ/L (136-145); TOTAL BILIRUBIN ADULT 4.2 MG/DL (0.2-1.0)
[2017-01-10 09:11] LABS: PLATELET ESTIMATE SMEAR RARE (NORMAL); PLATELET MORPHOLOGY NORMAL (NORMAL)
[2017-01-10 09:12] LABS: SCAN/DIFF AUTO DIFF CONFIRMED
--- NOTE | 2017-01-10 11:01 | PD.ONC.PN ---
Subjective Subjective Remarks Afebrile overnight. Patient resting in bed in nad. No complaints. Noticed a few small bruises on arms. No bleeding. Objective Data Date Time Temp Pulse Resp B/P (MAP) Pulse Ox O2 Delivery O2 Flow Rate FiO2 01/10/17 08:00 97.8 71 16 152/88 (109) 98 01/10/17 04:00 98.2 60 16 132/80 (97) 97 01/10/17 00:00 98.4 56 18 134/81 (98) 99 01/09/17 20:00 99.1 68 18 149/86 (107) 99 01/09/17 19:50 Room Air 01/09/17 19:35 63 01/09/17 16:00 98.8 67 20 142/81 (101) 98 01/09/17 13:34 22 01/09/17 12:00 98.6 71 20 121/69 (86) 96 01/10/17 01/10/17 01/10/17 07:00 15:00 23:00 Intake Total 360 ml Balance 360 ml Result Diagram: 01/10/17 0740 01/10/1740 Laboratory Results Laboratory Tests Test 01/09/17 14:45 01/09/17 20:10 01/10/17 07:40 Hemoglobin 10.3 GM/DL 10.0 GM/DL 10.1 GM/DL Hematocrit 30.3 % 29.4 % 29.5 % Haptoglobin LESS THAN 8 MG/DL Prothrombin Time 17.6 SEC 18.1 SEC Prothromb Time International Ratio 1.6 RATIO 1.6 RATIO Activated Partial Thromboplast Time 35.6 SEC Fibrinogen 160 mg/dL Iron Level 58 MCG/DL Total Iron Binding Capacity 280 MCG/DL Percent Iron Saturation 20.7 % Ferritin 111 NG/ML Ammonia 61 MCMOL/L 41 MCMOL/L Lactate Dehydrogenase 299 U/L Tumor Marker Alpha Fetoprotein 4.2 NG/ML White Blood Count 3.2 TH/MM3 Red Blood Count 2.95 MIL/MM3 Mean Corpuscular Volume 100.1 FL Mean Corpuscular Hemoglobin 34.2 PG Mean Corpuscular Hemoglobin Concent 34.2 % Red Cell Distribution Width 15.5 % Platelet Count 19 TH/MM3 Mean Platelet Volume 8.2 FL Neutrophils (%) (Auto) 64.2 % Lymphocytes (%) (Auto) 18.4 % Monocytes (%) (Auto) 15.9 % Eosinophils (%) (Auto) 1.2 % Basophils (%) (Auto) 0.3 % Neutrophils # (Auto) 2.0 TH/MM3 Lymphocytes # (Auto) 0.6 TH/MM3 Monocytes # (Auto) 0.5 TH/MM3 Eosinophils # (Auto) 0.0 TH/MM3 Basophils # (Auto) 0.0 TH/MM3 CBC Comment AUTO DIFF Differential Comment AUTO DIFF CONFIRMED Platelet Estimate RARE Platelet Morphology Comment NORMAL Blood Urea Nitrogen 10 MG/DL Creatinine 0.94 MG/DL Random Glucose 110 MG/DL Total Protein 7.6 GM/DL Albumin 2.6 GM/DL Calcium Level 7.9 MG/DL Alkaline Phosphatase 145 U/L Aspartate Amino Transf (AST/SGOT) 62 U/L Alanine Aminotransferase (ALT/SGPT) 23 U/L Total Bilirubin 4.2 MG/DL Sodium Level 135 MEQ/L Potassium Level 3.7 MEQ/L Chloride Level 102 MEQ/L Carbon Dioxide Level 25.2 MEQ/L Anion Gap 8 MEQ/L Estimat Glomerular Filtration Rate 85 ML/MIN Culture Results Microbiology Date/Time Source Procedure Growth Status 01/08/17 18:57 Urine Clean Catch Urine Culture - Final NO GROWTH IN 48 HOURS. Complete Administered Medications Medications (Trade) Dose Ordered Sig/Daniela Route PRN Reason Start Time Stop Time Status Last Admin Dose Admin Chlordiazepoxide (Librium) 25 mg TID PO 01/09/17 09:00 01/10/17 08:04 Sodium Chloride (NS Flush) 2 ml BID IV FLUSH 01/08/17 21:00 01/10/17 08:05 Ceftriaxone Sodium 1000 mg/ Sodium Chloride 100 ml @ 200 mls/hr Q24H IV 01/09/17 20:00 01/09/17 19:42 Phytonadione (Mephyton) 10 mg DAILY PO 01/09/17 09:00 01/10/17 08:04 Tramadol HCl (Ultram) 50 mg Q6H PRN PO persistent Headache 01/09/17 09:00 01/09/17 19:42 Acetaminophen (Tylenol) 500 mg Q6H PRN PO Mild Headache 01/09/17 09:00 01/09/17 12:23 Prednisone (Deltasone) 20 mg DAILY PO 01/09/17 11:30 01/10/17 08:05 Pantoprazole Sodium (Protonix) 40 mg DAILY PO 01/09/17 11:30 01/10/17 08:05 Tamsulosin HCl (Flomax) 0.4 mg DAILY PO 01/09/17 14:00 01/10/17 08:05 Objective Remarks GENERAL: Middle aged male sitting up in bed in nad. SKIN: Warm and dry. HEAD: Normocephalic. EYES: No injection or drainage. NECK: Supple, trachea midline. CARDIOVASCULAR: Regular rate and rhythm RESPIRATORY: Breath sounds equal bilaterally. No accessory muscle use. GASTROINTESTINAL: Abdomen soft, non-tender, nondistended. EXTREMITIES: No cyanosis NEUROLOGICAL: awake and alert, normal speech. moving all extremities. Assessment/Plan Problem List: (1) Pancytopenia ICD Codes: D61.818 - Other pancytopenia Plan: --d/t bone marrow suppression from his alcohol intake plus secondary effect of decreased thrombopoietin produced in the liver. --recommend conservative management and abstinence. (2) Liver cirrhosis ICD Codes: K74.60 - Unspecified cirrhosis of liver Plan: --gastroenterology following to assist in management of his liver cirrhosis. Assessment 51y/o male with pancytopenia. h/o Alcoholic liver disease. Possible cirrhosis. Hyperbilirubinemia. Psoriasis. Plan 1. monitor CBC 2. monitor clinically for bleeding 3. avoid NSAIDs/ASA Attending Statement The exam, history, and the medical decision-making described in the above note were completed with the assistance of the mid-level provider. I reviewed and agree with the findings presented. I attest that I had a ceir-sq-atic encounter with the patient on the same day, and personally performed and documented my assessment and findings in the medical record. Pt seen and examined. Eager to leave and go home. He has an appt with [place] physicianCarlos on Friday. He has been referred to GI, hepatology previously. We discussed at length his dx fatty liver, cirrhosis, splenomegaly. The alcohol, liver cirrhosis and splenomegaly all contribute to thrombocytopenia. No response to steroid- unlikely ITP, hgb stable. Advised of his platelet count, goal to tx with B12 and folate. No bleeding. Noted urology evaluation. Hematuria resolved. Advised against leaving AMA, advised to wait for his team in AM. Discussed with his nurse. [facility] onc standpoint. Francie Sierra Jan 10, 2017 11:01 Chanelle Butcher MD Jan 10, 2017 18:32
[2017-01-10 11:54] LABS: ANA SCREEN NEG (NEG)
[2017-01-10 12:00] VITALS: BP 121/76; PULSE 69; RESP 16; TEMP 98.8; O2SAT 98
[2017-01-10 12:33] LABS: INDIRECT BILIRUBIN 1.6 MG/DL (0.0-0.8); TOTAL BILIRUBIN ADULT 4.3 MG/DL (0.2-1.0)
--- NOTE | 2017-01-10 13:45 | HHI.GIFU ---
Subjective Remarks Ambulating in lee. No bleeding. No n/v. Denies abdominal pain. Does complain of constipation, states he uses a prescription liquid laxative at home as needed and this works well for him- possibly lactulose (Jazz Kan) Objective Vitals I&O Vital Signs Date Time Temp Pulse Resp B/P (MAP) Pulse Ox O2 Delivery O2 Flow Rate FiO2 01/10/17 12:00 98.8 69 16 121/76 (91) 98 01/10/17 08:30 Room Air 01/10/17 08:02 60 01/10/17 08:00 97.8 71 16 152/88 (109) 98 01/10/17 04:00 98.2 60 16 132/80 (97) 97 01/10/17 00:00 98.4 56 18 134/81 (98) 99 01/09/17 20:00 99.1 68 18 149/86 (107) 99 01/09/17 19:50 Room Air 01/09/17 19:35 63 01/09/17 16:00 98.8 67 20 142/81 (101) 98 I/O 01/09/17 01/09/17 01/09/17 01/10/17 01/10/17 01/10/17 07:00 15:00 23:00 07:00 15:00 23:00 Intake Total 1282 ml 580 ml 360 ml Balance 1282 ml 580 ml 360 ml Intake Oral 0 ml 480 ml 360 ml IV Total 50 ml 100 ml FFP 1172 ml Blood Product IV Normal Saline Flush 60 ml # Voids 2 1 5 # Bowel Movements 0 0 1 Laboratory Laboratory Tests Test 01/09/17 14:45 01/09/17 20:10 01/10/17 07:40 Hemoglobin 10.3 10.0 10.1 Hematocrit 30.3 29.4 29.5 Haptoglobin LESS THAN 8 Prothrombin Time 17.6 18.1 Prothromb Time International Ratio 1.6 1.6 Activated Partial Thromboplast Time 35.6 Fibrinogen 160 Iron Level 58 Total Iron Binding Capacity 280 Percent Iron Saturation 20.7 Ferritin 111 Ammonia 61 41 Lactate Dehydrogenase 299 303 Tumor Marker Alpha Fetoprotein 4.2 Anti-Nuclear Antibody Screen NEG Hepatitis A IgM Antibody NEGATIVE Hepatitis B Surface Antigen NEGATIVE Hepatitis B Core IgM Antibody NEGATIVE Hepatitis C Antibody NEGATIVE White Blood Count 3.2 Red Blood Count 2.95 Mean Corpuscular Volume 100.1 Mean Corpuscular Hemoglobin 34.2 Mean Corpuscular Hemoglobin Concent 34.2 Red Cell Distribution Width 15.5 Platelet Count 19 Mean Platelet Volume 8.2 Neutrophils (%) (Auto) 64.2 Lymphocytes (%) (Auto) 18.4 Monocytes (%) (Auto) 15.9 Eosinophils (%) (Auto) 1.2 Basophils (%) (Auto) 0.3 Neutrophils # (Auto) 2.0 Lymphocytes # (Auto) 0.6 Monocytes # (Auto) 0.5 Eosinophils # (Auto) 0.0 Basophils # (Auto) 0.0 CBC Comment AUTO DIFF Differential Comment AUTO DIFF CONFIRMED Platelet Estimate RARE Platelet Morphology Comment NORMAL Blood Urea Nitrogen 10 Creatinine 0.94 Random Glucose 110 Total Protein 7.6 Albumin 2.6 Calcium Level 7.9 Alkaline Phosphatase 145 Aspartate Amino Transf (AST/SGOT) 62 Alanine Aminotransferase (ALT/SGPT) 23 Total Bilirubin 4.2 Sodium Level 135 Potassium Level 3.7 Chloride Level 102 Carbon Dioxide Level 25.2 Anion Gap 8 Estimat Glomerular Filtration Rate 85 Direct Bilirubin 2.7 Indirect Bilirubin 1.6 Date/Time Source Procedure Growth Status 01/08/17 18:57 Urine Clean Catch Urine Culture - Final NO GROWTH IN 48 HOURS. Complete Imaging Last Impressions Liver Ultrasound 01/09/17 0000 Signed Impressions: Service Date/Time: December 09:33 - CONCLUSION: 1. Findings of cirrhosis with portal vein abnormalities chest and hypertension or thrombus. 2. Splenomegaly Maulik Green MD Head CT 01/08/17 0000 Signed Impressions: Service Date/Time: Sunday, January 08, 2017 19:13 - CONCLUSION: Normal examination for a patient of this age. No significant change has occurred. Quinten Smiley MD Physical Exam HEENT: Normocephalic; atraumatic; no jaundice. CHEST: CTA CARDIAC: RRR ABDOMEN: Soft, nondistended, nontender; hepatosplenomegaly; bowel sounds are present in all four quadrants. EXTREMITIES: No clubbing, cyanosis, or edema. SKIN: Small ecchymotic areas VETERINARY HOSPITAL ATTENDANT: No focal deficits; alert and oriented times three. (Jazz Kan) Assessment and Plan Plan ASSESSMENT: - Severe Pancytopenia. Referred to ER for severe [facility]cy[facility]. Pt has evidence of liver cirrhosis based on US imaging and lab work. He was seen by a rn private duty through the [place] 3 months ago at [facility]. He states he was scheduled for a colonoscopy 2 months ago, but it was cancelled secondary to thrombocytopenia. WBC 3.2, 10.1/29.5 , Plt 19,000. He is not having any active bleeding and denies any GI symptoms. Hematology is following- Retic count 2.1, LDH 303, Fibrinogen 160 , blood smear, haptoglobin < 8. Peripheral blood smear- marked thrombocytopenia, moderate leukopenia, and moderate macrocytic anemia. Substantial numbers of fragmented red blood cells are not appreciated making a microangiopathic hemolytic process less likely. Likely related to liver cirrhosis. No active bleeding. - Coagulopathy. PT 18.1, INR 1.6, APTT 35.6, fibrinogen 160. He had 2 units FFP and Vitamin K - Elevated LFTs, Liver cirrhosis. Told 3 months ago that he had alcoholic liver disease, possible cirrhosis, but states it was never determined if he actually had cirrhosis. He drank heavily in college and has drank 4 beers per day for many years. No hx of hepatitis. Denies family hx of liver disease. Liver US (01/09/17)----> findings of cirrhosis with portal vein abnormalities chest and hypertension or thrombus, splenomegaly. MELD 17. DF 32.0. Hepatitis profile negative, BRIAN negative, AMA pending, ASMA pending, AFP 4.2 , Alpha 1 Antitrypsin pending, Ceruloplasmin pending, Ferritin 111, Iron saturation 20.7. Recheck LFT in am. On prednisone for alcoholic hepatitis. - Constipation, ammonia 61 (alert/oriented with this), will start lactulose daily - Alcoholic hepatitis. DF 32, Prednisone. - Abnormal U/A, Cx no growth 48 hours. Ceftriaxone. - Psoriasis per attending. PLAN: - 2 gram Sodium diet - Lactulose 30mL po daily - Cont. PPI - Cont. Prednisone for alcoholic hepatitis - CBC, CMP in am - Await AMA, ASMA, Ceruloplasmin, Alpha 1 Antitrypsin - DT precautions - Hematology following - Supportive care - Further recommendations to follow based on results of above - Will need EGD/Colonoscopy when platelets allow - Pt seen and examined by Dr. Ruiz and myself and this note is written on his behalf (Jazz Kan) Physician Comments Seen and examined with BON, no active bleeding. Liver rojas in progress. Endoscopy once platelet counts > 12653. (Andre Ruiz MD) Jazz Kan Jan 10, 2017 13:45 Andre Ruiz MD Jan 10, 2017 15:22
--- NOTE | 2017-01-10 14:10 | MB ---
cc: WHITNEY COPELAND DATE OF CONSULTATION: 01/09/2017 HISTORY OF PRESENT ILLNESS Mr. Del Cid is a pleasant 51-year-old male who was found to have some hematuria as well as GI bleeding on admission. He has a long history of alcoholism and drinks 4-5 beers per day. He was seen at the [facility] and was told his platelet count was around 14,000 and referred to the emergency room. He does note a history of hematuria approximately 6-8 months ago but it spontaneously resolved. A recent liver ultrasound was consistent with cirrhosis. He states that he gets up 4-5 times at night and has symptoms of bladder outlet obstruction. PAST MEDICAL HISTORY Other medical problems include: 1. Alcoholic liver disease. 2. Hyperbilirubinemia. 3. Cirrhosis. 4. Pancytopenia. 5. Psoriasis. PAST SURGICAL HISTORY Notable for left finger surgery. FAMILY HISTORY No family history of prostate cancer is noted. SOCIAL HISTORY Alcoholism. He also smokes approximately a half pack per day. REVIEW OF SYSTEMS He notes easy bruising. Denies chest pain or shortness of breath. He notes hematuria and some GI bleeding. Denies constipation or diarrhea. Denies gait disturbances. Denies heat or cold intolerance. Denies psychiatric problems. He does note nocturia 4-5 times with a weak stream. He denies any skin rashes or lesions, but he does note petechiae. The remaining review of systems were reviewed and are negative. PHYSICAL EXAMINATION VITAL SIGNS: Temperature 98.8, heart rate 69, respiratory rate 16, blood pressure 121/76. GENERAL: A well-developed, well-nourished 51-year-old man slightly jaundiced, in no acute distress. HEENT: Normocephalic, atraumatic. Pupils equal, round and react to light. Extraocular movements intact. NECK: Supple. HEART: Regular rate and rhythm. LUNGS: Clear. ABDOMEN: Soft, nontender, nondistended. : The prostate is approximately 40 grams on exam, smooth, no nodularity. Normal phallus. Testes are descended. EXTREMITIES: 1+ edema is noted. NEUROLOGIC: Cranial nerves II through XII are intact. PSYCH: Generalized mood. LABORATORY White count 3.2, hemoglobin 10.1, hematocrit 29.5, platelet count 19,000. Sodium 135, potassium 3.7, chloride 102, CO2 25.2, BUN 10, creatinine 0.94, glucose 110. PT 18.1, INR 1.6, PTT 35.6. Urinalysis shows numerous red cells, 26 white cells, nitrites negative, large blood noted. ASSESSMENT A 51-year-old male with symptoms of gross hematuria with bladder outlet obstruction. PLAN/RECOMMENDATIONS Recommend starting Flomax 0.4 mg p.o. q.h.s. to help with lower urinary tract symptoms and nocturia. Hematuria will probably clear on its own once his pancytopenia has improved. Would recommend a follow-up and an outpatient cystoscopy at that time. Will obtain a renal/bladder ultrasound. Thank you for the consult and allowing me to participate in the care of this patient. Whitney CEE/KRISTINA /1:34 PM /1:59 PM ANUJ
[2017-01-10] MEDS ORDERED: LACTULOSE SYRUP 20 GM/30 ML CUP PO SCH (14:15)
--- NOTE | 2017-01-10 14:59 | HHI.PR ---
Subjective Patient symptoms today Pt seen and examined. Hematuria resolved. Voiding Ok. Objective Vital Signs Vital Signs Date Time Temp Pulse Resp B/P (MAP) Pulse Ox O2 Delivery O2 Flow Rate FiO2 01/10/17 12:00 98.8 69 16 121/76 (91) 98 01/10/17 08:30 Room Air 01/10/17 08:02 60 01/10/17 08:00 97.8 71 16 152/88 (109) 98 01/10/17 04:00 98.2 60 16 132/80 (97) 97 01/10/17 00:00 98.4 56 18 134/81 (98) 99 01/09/17 20:00 99.1 68 18 149/86 (107) 99 01/09/17 19:50 Room Air 01/09/17 19:35 63 01/09/17 16:00 98.8 67 20 142/81 (101) 98 Intake & Output 01/10/17 01/10/17 06:59 18:59 Intake Total 460 ml 720 ml Balance 460 ml 720 ml Intake Oral 360 ml 720 ml IV Total 100 ml # Voids 5 3 # Bowel Movements 1 Result Diagram: 01/10/1740 01/10/1740 Objective Remarks Abd:soft,nt,nd Voiding clear urine Medications and IVs Current Medications Medications (Trade) Dose Ordered Sig/Daniela Route Start Time Stop Time Status Last Admin (Narcan Inj) 0.4 mg UNSCH PRN IV PUSH 01/08/17 20:45 (Librium) 25 mg TID PO 01/09/17 09:00 01/10/17 12:21 (NS Flush) 2 ml UNSCH PRN IV FLUSH 01/08/17 20:45 (NS Flush) 2 ml BID IV FLUSH 01/08/17 21:00 01/10/17 08:05 (Romazicon Inj) 0.2 mg Q1M PRN IV PUSH 01/08/17 20:45 (Ativan) 1 mg Q4H PRN PO 01/08/17 20:45 (Ativan Inj) 1 mg Q4H PRN IV PUSH 01/08/17 20:45 (Ativan) 2 mg Q2H PRN PO 01/08/17 20:45 (Ativan Inj) 2 mg Q2H PRN IV PUSH 01/08/17 20:45 (Ativan Inj) 2 mg Q1H PRN IV PUSH 01/08/17 20:45 (Ativan Inj) 2 mg Q15M PRN IV PUSH 01/08/17 20:45 Ceftriaxone Sodium 1000 mg/ Sodium Chloride 100 ml @ 200 mls/hr Q24H IV 01/09/17 20:00 01/09/17 19:42 (Mephyton) 10 mg DAILY PO 01/09/17 09:00 01/10/17 08:04 (Ultram) 50 mg Q6H PRN PO 01/09/17 09:00 01/09/17 19:42 (Tylenol) 500 mg Q6H PRN PO 01/09/17 09:00 01/09/17 12:23 (Deltasone) 20 mg DAILY PO 01/09/17 11:30 01/10/17 08:05 (Protonix) 40 mg DAILY PO 01/09/17 11:30 01/10/17 08:05 (Flomax) 0.4 mg DAILY PO 01/09/17 14:00 01/10/17 08:05 (Lactulose Liq) 30 ml DAILY PO 01/10/17 14:15 01/10/17 14:24 Assessment and Plan Assessment and Plan 51 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 F/U with urology for flex cysto in office. Vihs Adkins DO Jan 10, 2017 14:59
[2017-01-10 15:36] VITALS: BP 135/74; PULSE 60; RESP 16; TEMP 98; O2SAT 100
[2017-01-10] MEDS ORDERED: FOLIC ACID 1 MG TAB PO SCH (18:15)
[2017-01-10] MEDS ORDERED: CYANOCOBALAMIN 1000 MCG/ML VIAL SQ ONE (18:15)
--- NOTE | 2017-01-10 18:29 | HHI.PR ---
Subjective Remarks Patient seen today around noon. Says he is feeling all right. Denies any chest pain or shortness of breath. He does note bruising all over, however this has not progressed. Objective Vital Signs Date Time Temp Pulse Resp B/P (MAP) Pulse Ox O2 Delivery O2 Flow Rate FiO2 01/10/17 15:36 98.0 60 16 135/74 (94) 100 01/10/17 12:00 98.8 69 16 121/76 (91) 98 01/10/17 08:30 Room Air 01/10/17 08:02 60 01/10/17 08:00 97.8 71 16 152/88 (109) 98 01/10/17 04:00 98.2 60 16 132/80 (97) 97 01/10/17 00:00 98.4 56 18 134/81 (98) 99 01/09/17 20:00 99.1 68 18 149/86 (107) 99 01/09/17 19:50 Room Air 01/09/17 19:35 63 I/O 01/09/17 01/09/17 01/09/17 01/10/17 01/10/17 01/10/17 07:00 15:00 23:00 07:00 15:00 23:00 Intake Total 1282 ml 580 ml 360 ml 720 ml Balance 1282 ml 580 ml 360 ml 720 ml Intake Oral 0 ml 480 ml 360 ml 720 ml IV Total 50 ml 100 ml FFP 1172 ml Blood Product IV Normal Saline Flush 60 ml # Voids 2 1 5 3 # Bowel Movements 0 0 1 Result Diagram: 01/10/17 0740 01/10/17 0740 Objective Remarks GENERAL: patient sitting up in bed. Appears comfortable. SKIN: Warm and dry. HEAD: Normocephalic. EYES: No scleral icterus. No injection or drainage. NECK: Supple, trachea midline. No JVD. CARDIOVASCULAR: Regular rate and rhythm without murmurs, gallops, or rubs. RESPIRATORY: Breath sounds equal bilaterally. No accessory muscle use. GASTROINTESTINAL: Abdomen soft, non-tender, nondistended. MUSCULOSKELETAL: No cyanosis, or edema. BACK: Nontender without obvious deformity. No CVA tenderness. A/P Assessment and Plan //Pancytopenia -01/10. Overall improving. White blood cell 3.2 from 2.3 on admission. Neutrophils 2.0. Platelets 19 from 16 yesterday. Continue to monitor. -Appreciate hematology assistance. //Alcoholic cirrhosis //Possible portal vein thrombosis on ultrasound. -Liver workup pending as per GI. -Continue lactulose, PPI -EGD/colonoscopy when platelets acceptable. Need to be over 25,000. -Appreciate gastroenterology assistance. //Suspected alcohol withdrawal. -Continue Librium. Continue CIWA. //Hematuria. Resolved. -Likely secondary to thrombocytopenia/liver disease. -Continue tamsulosin. -Patient with hematuria on urinalysis. We will discontinue ceftriaxone as urine culture is negative. -Appreciate urology assistance. Follow-up with Dr. Adkins as outpatient. //Prophylaxis. Patient with pancytopenia. Bruising. As per hematology. Discharge Planning patient need to improveprior to GI procedure. Jonatan Bernal MD Jan 10, 2017 18:29
--- NOTE | 2017-01-10 19:08 | HHI.DS ---
Discharge Summary Admission Date Jan 08, 2017 at 20:35 Discharge Date: Jan 10, 2017 Admitting Diagnosis hematuria, GI bleed, pancytopenia, elevated INR (1) Pancytopenia ICD Code: D61.818 - Other pancytopenia (2) Liver cirrhosis ICD Code: K74.60 - Unspecified cirrhosis of liver Procedures no invasive procedures performed. Brief History - From Admission was called by [facility] [place] [id number] denies bleeding from anywhere was supposed to have egd and colonscopy at [facility], cancelled due to platelet 36,000 then liver sono outpatient said enlarged had blood work nausea and little bit of dry heaves in past one week did throw up a while back - he thinks throwing up was from anxiety, but not common CBC/BMP: 01/10/17 0740 01/10/17 0740 Significant Findings Laboratory Tests Test 01/08/17 15:55 01/08/17 18:57 01/08/17 22:30 01/09/17 05:09 White Blood Count 3.9 TH/MM3 (4.0-11.0) Red Blood Count 3.25 MIL/MM3 (4.50-5.90) Hemoglobin 11.3 GM/DL (13.0-17.0) 10.1 GM/DL (13.0-17.0) Hematocrit 32.6 % (39.0-51.0) 28.9 % (39.0-51.0) Mean Corpuscular Volume 100.4 FL (80.0-100.0) Mean Corpuscular Hemoglobin 34.8 PG (27.0-34.0) Platelet Count 22 TH/MM3 (150-450) Monocytes (%) (Auto) 15.8 % (0.0-8.0) Lymphocytes # (Auto) 0.5 TH/MM3 (1.0-4.8) Platelet Estimate LOW (NORMAL) Prothrombin Time 18.0 SEC (9.8-11.6) Activated Partial Thromboplast Time 34.7 SEC (24.3-30.1) Blood Urea Nitrogen 6 MG/DL (7-18) Random Glucose 113 MG/DL (74-106) Calcium Level 8.1 MG/DL (8.5-10.1) 7.7 MG/DL (8.5-10.1) Estimat Glomerular Filtration Rate 74 ML/MIN (>89) 82 ML/MIN (>89) Total Bilirubin 4.4 MG/DL (0.2-1.0) Direct Bilirubin 2.7 MG/DL (0.0-0.2) Indirect Bilirubin 1.7 MG/DL (0.0-0.8) Aspartate Amino Transf (AST/SGOT) 86 U/L (15-37) Alkaline Phosphatase 157 U/L (45-117) Albumin 3.0 GM/DL (3.4-5.0) Urine Color DARK-BROWN (YELLW/STRAW) Urine Turbidity CLOUDY (CLEAR) Urine Protein 100 mg/dL (NEG-TRACE) Urine Ketones TRACE mg/dL (NEG) Urine Occult Blood LARGE (NEG) Urine Bilirubin MOD (NEG) Urine Urobilinogen 8.0 MG/DL (LESS THAN Urine Leukocyte Esterase SMALL (NEG) Urine WBC 26 /hpf (0-5) Urine Bacteria MANY /hpf (NONE) Urine Mucus MANY /lpf (OCC) Test 01/09/17 07:25 01/09/17 14:45 01/09/17 20:10 01/10/17 07:40 White Blood Count 2.3 TH/MM3 (4.0-11.0) 3.2 TH/MM3 (4.0-11.0) Red Blood Count 2.77 MIL/MM3 (4.50-5.90) 2.95 MIL/MM3 (4.50-5.90) Hemoglobin 9.6 GM/DL (13.0-17.0) 10.3 GM/DL (13.0-17.0) 10.0 GM/DL (13.0-17.0) 10.1 GM/DL (13.0-17.0) Hematocrit 27.8 % (39.0-51.0) 30.3 % (39.0-51.0) 29.4 % (39.0-51.0) 29.5 % (39.0-51.0) Mean Corpuscular Volume 100.2 FL (80.0-100.0) 100.1 FL (80.0-100.0) Mean Corpuscular Hemoglobin 34.5 PG (27.0-34.0) 34.2 PG (27.0-34.0) Platelet Count 16 TH/MM3 (150-450) 19 TH/MM3 (150-450) Monocytes (%) (Auto) 19.1 % (0.0-8.0) 15.9 % (0.0-8.0) Neutrophils # (Auto) 1.3 TH/MM3 (1.8-7.7) Lymphocytes # (Auto) 0.5 TH/MM3 (1.0-4.8) 0.6 TH/MM3 (1.0-4.8) Platelet Estimate LOW (NORMAL) RARE (NORMAL) Haptoglobin LESS THAN 8 MG/DL (30-200) Prothrombin Time 17.6 SEC (9.8-11.6) 18.1 SEC (9.8-11.6) Activated Partial Thromboplast Time 35.6 SEC (24.3-30.1) Fibrinogen 160 mg/dL (227-377) Iron Level 58 MCG/DL (65-175) Ammonia 61 MCMOL/L (11-32) 41 MCMOL/L (11-32) Lactate Dehydrogenase 299 U/L (87-241) 303 U/L (87-241) Random Glucose 110 MG/DL (74-106) Albumin 2.6 GM/DL (3.4-5.0) Calcium Level 7.9 MG/DL (8.5-10.1) Alkaline Phosphatase 145 U/L (45-117) Aspartate Amino Transf (AST/SGOT) 62 U/L (15-37) Total Bilirubin 4.2 MG/DL (0.2-1.0) Sodium Level 135 MEQ/L (136-145) Estimat Glomerular Filtration Rate 85 ML/MIN (>89) Direct Bilirubin 2.7 MG/DL (0.0-0.2) Indirect Bilirubin 1.6 MG/DL (0.0-0.8) Imaging Last Impressions Liver Ultrasound 01/09/17 0000 Signed Impressions: Service Date/Time: December 09:33 - CONCLUSION: 1. Findings of cirrhosis with portal vein abnormalities chest and hypertension or thrombus. 2. Splenomegaly Maulik Green MD Head CT 01/08/17 0000 Signed Impressions: Service Date/Time: Sunday, January 08, 2017 19:13 - CONCLUSION: Normal examination for a patient of this age. No significant change has occurred. Quinten Smiley MD Hospital Course Patient admitted secondary to pancytopenia, cirrhosis. patient was treated for alcohol withdrawal. Patient is also noted to have hematuria which resolved. Urology was consult and during this admission, as well as gastroenterology and hematology.unfortunately was informed that patient left AGAINST MEDICAL ADVICE. For problem based summary from most recent progress note, please see below. //Pancytopenia -01/10. Overall improving. White blood cell 3.2 from 2.3 on admission. Neutrophils 2.0. Platelets 19 from 16 yesterday. Continue to monitor. -Appreciate hematology assistance. //Alcoholic cirrhosis //Possible portal vein thrombosis on ultrasound. -Liver workup pending as per GI. -Continue lactulose, PPI -EGD/colonoscopy when platelets acceptable. Need to be over 25,000. -Appreciate gastroenterology assistance. //Suspected alcohol withdrawal. -Continue Librium. Continue CIWA. //Hematuria. Resolved. -Likely secondary to thrombocytopenia/liver disease. -Continue tamsulosin. -Patient with hematuria on urinalysis. We will discontinue ceftriaxone as urine culture is negative. -Appreciate urology assistance. Follow-up with Dr. Adkins as outpatient. //Prophylaxis. Patient with pancytopenia. Bruising. As per hematology. Pt Condition on Discharge: Good Discharge Disposition: Discharge Home Discharge Time: <= 30 minutes Jnoatan Bernal MD Jan 10, 2017 19:08
[2017-01-15 03:51] LABS: MITOCHONDRIAL ABS LESS THAN 20.0 U (<=20.0)
== END 2017-01-10 18:47 | disposition left against medical advice (07) | DRG 808 ==
LOC: NEPC 14:31 → NEDA 20:35 → N04B 21:13
PROVIDERS: ADMIT Internal Medicine; ATTEND Internal Medicine
DX: D61.818 Other pancytopenia (principal); I81 Portal vein thrombosis; D68.4 Acquired coagulation factor deficiency; K70.30 Alcoholic cirrhosis of liver without ascites; F10.239 Alcohol dependence with withdrawal, unspecified; F17.210 Nicotine dependence, cigarettes, uncomplicated; M10.9 Gout, unspecified; L40.9 Psoriasis, unspecified; R51 Headache; R31.0 Gross hematuria; N32.0 Bladder-neck obstruction; K59.00 Constipation, unspecified; D53.9 Nutritional anemia, unspecified; K70.10 Alcoholic hepatitis without ascites; N40.1 Benign prostatic hyperplasia with lower urinary tract symptoms
CPT/HCPCS: 36430; 70450; 76705; 80048; 80053; 80074; 80076; 81001; 82103; 82105; 82140; 82390; 82607; 82728; 83010; 83520; 83540; 83550; 83615; 85014; 85018; 85025; 85044; 85060; 85384; 85610; 85730; 86038; 86255; 86850; 86880; 86900; 86901; 86927; 87086; J0696; J7512; P9017

== ENCOUNTER 2017-05-28 18:14 | Emergency (ER) | payer OTHER ==
[~2017-05-28] VITALS: Ht 195.6 cm; Wt 120.0 kg
[2017-05-28 18:37] VITALS: BP 111/75; PULSE 92; RESP 15; TEMP 98.2; O2SAT 98
--- NOTE | 2017-05-28 19:26 | PD ---
HPI Chief Complaint: Pain: Acute or Chronic Time Seen by Provider: 19:01 Travel History International Travel<30 days: No Contact w/Intl Traveler<30days: No Traveled to known affect area: No History of Present Illness HPI Patient is a 51-year-old male presenting to the emergency department for evaluation of bilateral knee and forearm pain. Symptoms started 2 weeks ago, there is no preceding injury or trauma. Patient denies any cold or flulike symptoms. He states the pain comes and goes, he states aching. There are no alleviating or exacerbating factors. Symptom severity is mild to moderate, is not limiting his activity. Patient also reports insomnia and is requesting a sleep aid. PFSH Past Medical History Arthritis: Yes (HANDS AND WRISTSW) Gout: Yes Headaches: Yes Neurologic: Yes Integumentary: Yes (PSORIASIS) Migraines: Yes Influenza Vaccination: No Past Surgical History Other Surgery: Yes Social History Alcohol Use: Yes (4 beers a day per pt) Tobacco Use: Yes (less than half a pack) Substance Use: No Allergies-Medications (Allergen,Severity, Reaction): Coded Allergies: codeine (Unverified Allergy, Severe, 05/28/17) Reported Meds & Prescriptions Reported Meds & Active Scripts Active No Active Prescriptions or Reported Medications Review of Systems Except as stated in HPI: all other systems reviewed are Neg Musculoskeletal: Positive: Myalgias, Arthralgias, No: Edema Skin: No Rash, No Change in Pigmentation Physical Exam Narrative GENERAL: Well-developed, well-nourished, well-appearing male. Presenting in no acute distress. SKIN: Warm and dry. No rash or obvious lesions, no erythema or warmth to extremities. HEAD: Atraumatic. Normocephalic. EYES: Pupils equal and round. No scleral icterus. No injection or drainage. ENT: No nasal bleeding or discharge. Mucous membranes pink and moist. NECK: Trachea midline. No JVD. CARDIOVASCULAR: Regular rate and rhythm. RESPIRATORY: No accessory muscle use. Clear to auscultation. Breath sounds equal bilaterally. GASTROINTESTINAL: Abdomen soft, non-tender, nondistended. Hepatic and splenic margins not palpable. MUSCULOSKELETAL: Extremities without clubbing, cyanosis, or edema. No obvious deformities. NEUROLOGICAL: Awake and alert. No obvious cranial nerve deficits. Motor grossly within normal limits. Five out of 5 muscle strength in the arms and legs. Normal speech. PSYCHIATRIC: Appropriate mood and affect; insight and judgment normal. Data Data Last Documented VS Vital Signs Date Time Temp Pulse Resp B/P (MAP) Pulse Ox O2 Delivery O2 Flow Rate FiO2 05/28/17 18:37 98.2 92 15 111/75 (87) 98 Orders Orders Complete Blood Count With Diff (05/28/17 19:27) Comprehensive Metabolic Panel (05/28/17 19:27) Act Partial Throm Time (Ptt) (05/28/17 19:27) Prothrombin Time / Inr (Pt) (05/28/17 19:27) Iv Access Insert/Monitor (05/28/17 19:27) Electrocardiogram (05/28/17 ) Labs Laboratory Tests Test 05/28/17 19:35 White Blood Count 4.7 TH/MM3 Red Blood Count 2.68 MIL/MM3 Hemoglobin 9.8 GM/DL Hematocrit 27.8 % Mean Corpuscular Volume 103.7 FL Mean Corpuscular Hemoglobin 36.5 PG Mean Corpuscular Hemoglobin Concent 35.2 % Red Cell Distribution Width 15.8 % Platelet Count 24 TH/MM3 Mean Platelet Volume 8.6 FL Neutrophils (%) (Auto) 63.6 % Lymphocytes (%) (Auto) 23.4 % Monocytes (%) (Auto) 8.9 % Eosinophils (%) (Auto) 3.2 % Basophils (%) (Auto) 0.9 % Neutrophils # (Auto) 3.0 TH/MM3 Lymphocytes # (Auto) 1.1 TH/MM3 Monocytes # (Auto) 0.4 TH/MM3 Eosinophils # (Auto) 0.2 TH/MM3 Basophils # (Auto) 0.0 TH/MM3 CBC Comment AUTO DIFF Differential Comment AUTO DIFF CONFIRMED Platelet Estimate RARE Platelet Morphology Comment NORMAL Prothrombin Time 17.4 SEC Prothromb Time International Ratio 1.7 RATIO Activated Partial Thromboplast Time 39.0 SEC Blood Urea Nitrogen 4 MG/DL Creatinine 0.90 MG/DL Random Glucose 113 MG/DL Total Protein 8.1 GM/DL Albumin 2.4 GM/DL Calcium Level 8.0 MG/DL Alkaline Phosphatase 145 U/L Aspartate Amino Transf (AST/SGOT) 105 U/L Alanine Aminotransferase (ALT/SGPT) 25 U/L Total Bilirubin 8.5 MG/DL Sodium Level 140 MEQ/L Potassium Level 3.3 MEQ/L Chloride Level 105 MEQ/L Carbon Dioxide Level 28.5 MEQ/L Anion Gap 7 MEQ/L Estimat Glomerular Filtration Rate 89 ML/MIN MDM Medical Decision Making Medical Screen Exam Complete: Yes Emergency Medical Condition: Yes Interpretation(s) Vital Signs Date Time Temp Pulse Resp B/P (MAP) Pulse Ox O2 Delivery O2 Flow Rate FiO2 05/28/17 18:37 98.2 92 15 111/75 (69) 98 Differential Diagnosis Arthritis versus cellulitis versus other Narrative Course Patient is a well-appearing 51-year-old male presenting with 2 weeks of vague joint pain. Patient is a history of arthritis, he took aspirin without relief of symptoms. Patient is afebrile and his vital signs are stable. He was going to go to the [facility] today but states they were already closed by the time he thought about it. He states that he has not been sleeping well for the last 3 days and is requesting a sleep aid. Patient has no flulike symptoms and is otherwise well. Upon review of medical records, patient has a history of pancytopenia. Labs were assessed, reviewed hematology notes from previous admission. Patient's pancytopenia is likely from bone marrow suppression secondary to alcoholism, as well as a secondary effect of decreased thrombocytopenia produced in the liver. Patient denies any black or tarry like stools, he has no other complaints of bleeding. Patient will be provided with copies of his lab work to take to the [facility]. He was advised to avoid alcohol at all costs, he was also advised to avoid any hepatotoxic drugs. He was educated on how to liver disease and alcohol causing his blood cells to be decreased. He verbalized understanding, patient will be given a short course of pain medication until he can follow-up at the [facility]. Patient stable for discharge. Diagnosis Primary Impression: Arthritis Additional Impression: Pancytopenia Referrals: Primary Care Physician 3 days Patient Instructions: Arthritis (ED), Cirrhosis (ED), General Instructions, Liver Disease Diet (DC), Pancytopenia (GEN) Additional Instructions: Follow-up at the [facility] in 2 days Avoid alcohol, acetaminophen, aspirin, ibuprofen Take medication as needed and as directed for pain Do not drive or operate machinery while taking medication Return to emergency department for any new or worsening symptoms Med/Other Pt SpecificInfo: Prescription(s) given Scripts Tramadol (Tramadol) 50 Mg Tab 50 MG PO Q6H Y for PAIN, #10 TAB 0 Refills Prov: Veronique Bailey 05/28/17 Disposition: 01 DISCHARGE HOME Condition: Stable Veronique Bailey May 28, 2017 19:26
[2017-05-28 20:01] LABS: BASOPHIL % 0.9 % (0.0-2.0); EOSINOPHIL # 0.2 TH/MM3 (0-0.4); EOSINOPHIL % 3.2 % (0.0-4.0); HEMATOCRIT 27.8 % (39.0-51.0); HEMOGLOBIN 9.8 GM/DL (13.0-17.0); LYMPH % 23.4 % (9.0-44.0); LYMPHOCYTE # 1.1 TH/MM3 (1.0-4.8); MEAN CELL VOLUME 103.7 FL (80.0-100.0); MEAN CORPUSCULAR HEMOGLOBIN 36.5 PG (27.0-34.0); MEAN CORPUSCULAR HGB CONC 35.2 % (32.0-36.0); MEAN PLATELET VOLUME 8.6 FL (7.0-11.0); MONO % 8.9 % (0.0-8.0); MONOCYTE # 0.4 TH/MM3 (0-0.9); NEUT % 63.6 % (16.0-70.0); PLATELET COUNT 24 TH/MM3 (150-450); RED BLOOD COUNT 2.68 MIL/MM3 (4.50-5.90); RED CELL DISTRIBUTION WIDTH 15.8 % (11.6-17.2); WHITE BLOOD COUNT 4.7 TH/MM3 (4.0-11.0)
[2017-05-28 20:10] LABS: INTERNATIONAL NORMALIZED RATIO 1.7 RATIO; PROTHROMBIN TIME - PATIENT 17.4 SEC (9.8-11.6)
[2017-05-28 20:24] LABS: ALBUMIN 2.4 GM/DL (3.4-5.0); AST (GOT) 105 U/L (15-37); BICARBONATE 28.5 MEQ/L (21.0-32.0); BLOOD UREA NITROGEN 4 MG/DL (7-18); CHLORIDE 105 MEQ/L (98-107); GLOMERULAR FILTRATION RATE 89 ML/MIN (>89); GLUCOSE,RANDOM 113 MG/DL (74-106); SODIUM (NA) 140 MEQ/L (136-145)
[2017-05-28 20:25] LABS: ALT (GPT) 25 U/L (12-78)
[2017-05-28 20:28] LABS: ALKALINE PHOSPHATASE 145 U/L (45-117); TOTAL BILIRUBIN ADULT 8.5 MG/DL (0.2-1.0); TOTAL PROTEIN 8.1 GM/DL (6.4-8.2)
[2017-05-28 21:00] VITALS: BP 110/64; PULSE 90; RESP 16; O2SAT 97
[2017-05-28] MEDS ORDERED: TRAM50TA PO (21:36)
--- NOTE | 2017-05-28 21:41 | PD ---
Physical Exam Date Seen by Provider: May 28, 2017 Time Seen by Provider: 21:00 Narrative I, Dr. Dueñas, have reviewed the advance practice practitioner's documentation and am in agreement, met with the patient face to face, made the diagnosis, and the medical decision making was done by me. *My assessment and Findings: Patient seen and evaluated with PA, please see PA note for further details. He is complaining of bilateral knee pain but without injuries. On evaluation in the knees, no obvious deformities identified. Nontender range of motion. This appears to be more of a chronic issue. He states the pain gets bad sometimes and it moves around up and down the legs and 2 different areas. However, he was being fairly vague. [facility]. He denies any new issues. He states that he had rolled out of bed and fallen from bed but denies any significant injuries. On evaluation, I do not see any significant abrasions or lacerations. Vital signs are stable in the ER. Laboratory Tests Test 05/28/17 19:35 Red Blood Count 2.68 MIL/MM3 (4.50-5.90) Hemoglobin 9.8 GM/DL (13.0-17.0) Hematocrit 27.8 % (39.0-51.0) Mean Corpuscular Volume 103.7 FL (80.0-100.0) Mean Corpuscular Hemoglobin 36.5 PG (27.0-34.0) Platelet Count 24 TH/MM3 (150-450) Monocytes (%) (Auto) 8.9 % (0.0-8.0) Platelet Estimate RARE (NORMAL) Prothrombin Time 17.4 SEC (9.8-11.6) Activated Partial Thromboplast Time 39.0 SEC (24.3-30.1) Blood Urea Nitrogen 4 MG/DL (7-18) Random Glucose 113 MG/DL (74-106) Albumin 2.4 GM/DL (3.4-5.0) Calcium Level 8.0 MG/DL (8.5-10.1) Alkaline Phosphatase 145 U/L (45-117) Aspartate Amino Transf (AST/SGOT) 105 U/L (15-37) Total Bilirubin 8.5 MG/DL (0.2-1.0) Potassium Level 3.3 MEQ/L (3.5-5.1) Lab work shows pancytopenia which the patient has been known to have, appears to be stable. I do not think it is related this case. I do not see any signs of acute infection of the knee, although I do suspect he may have some underlying chronic knee issues including arthritis is a possibility. I do not think there is an underlying fracture or acute process in this case. [facility] and I would release him with [facility] at [facility]. Return for new issues as needed. Data Data Last Documented VS Vital Signs Date Time Temp Pulse Resp B/P (MAP) Pulse Ox O2 Delivery O2 Flow Rate FiO2 05/28/17 18:37 98.2 92 15 111/75 (87) 98 Orders Orders Complete Blood Count With Diff (05/28/17 19:27) Comprehensive Metabolic Panel (05/28/17 19:27) Act Partial Throm Time (Ptt) (05/28/17 19:27) Prothrombin Time / Inr (Pt) (05/28/17 19:27) Iv Access Insert/Monitor (05/28/17 19:27) Electrocardiogram (05/28/17 ) Ed Discharge Order (05/28/17 21:36) Labs Laboratory Tests Test 05/28/17 19:35 White Blood Count 4.7 TH/MM3 Red Blood Count 2.68 MIL/MM3 Hemoglobin 9.8 GM/DL Hematocrit 27.8 % Mean Corpuscular Volume 103.7 FL Mean Corpuscular Hemoglobin 36.5 PG Mean Corpuscular Hemoglobin Concent 35.2 % Red Cell Distribution Width 15.8 % Platelet Count 24 TH/MM3 Mean Platelet Volume 8.6 FL Neutrophils (%) (Auto) 63.6 % Lymphocytes (%) (Auto) 23.4 % Monocytes (%) (Auto) 8.9 % Eosinophils (%) (Auto) 3.2 % Basophils (%) (Auto) 0.9 % Neutrophils # (Auto) 3.0 TH/MM3 Lymphocytes # (Auto) 1.1 TH/MM3 Monocytes # (Auto) 0.4 TH/MM3 Eosinophils # (Auto) 0.2 TH/MM3 Basophils # (Auto) 0.0 TH/MM3 CBC Comment AUTO DIFF Differential Comment AUTO DIFF CONFIRMED Platelet Estimate RARE Platelet Morphology Comment NORMAL Prothrombin Time 17.4 SEC Prothromb Time International Ratio 1.7 RATIO Activated Partial Thromboplast Time 39.0 SEC Blood Urea Nitrogen 4 MG/DL Creatinine 0.90 MG/DL Random Glucose 113 MG/DL Total Protein 8.1 GM/DL Albumin 2.4 GM/DL Calcium Level 8.0 MG/DL Alkaline Phosphatase 145 U/L Aspartate Amino Transf (AST/SGOT) 105 U/L Alanine Aminotransferase (ALT/SGPT) 25 U/L Total Bilirubin 8.5 MG/DL Sodium Level 140 MEQ/L Potassium Level 3.3 MEQ/L Chloride Level 105 MEQ/L Carbon Dioxide Level 28.5 MEQ/L Anion Gap 7 MEQ/L Estimat Glomerular Filtration Rate 89 ML/MIN [facility] Medical Record Reviewed: Yes Supervised Visit with SHARLENE: Yes Diagnosis Primary Impression: Arthritis Additional Impression: Pancytopenia Referrals: Primary Care Physician 3 days Patient Instructions: General Instructions, Cirrhosis (ED), Liver Disease Diet (DC), Arthritis (ED), Pancytopenia (GEN) Additional Instruction: Follow-up at the [facility] in 2 days Avoid alcohol, acetaminophen, aspirin, ibuprofen Take medication as needed and as directed for pain Do not drive or operate machinery while taking medication Return to emergency department for any new or worsening symptoms Scripts Tramadol (Tramadol) 50 Mg Tab 50 MG PO Q6H Y for PAIN, #10 TAB 0 Refills Prov: Veronique Bailey 05/28/17 Disposition: 01 DISCHARGE HOME Condition: Stable Shawn Dueñas MD May 28, 2017 21:41
[2017-05-28] MEDS ORDERED: traMADol HCL 50 MG TAB PO ONE (22:15)
--- NOTE | 2017-05-29 10:53 | EKG ---
Date Performed: 05/28/2017 Time Performed: 19:32:13 PTAGE: 51 years EKG: Sinus rhythm WITH OCCASIONAL SUPRAVENTRICULAR PREMATURE COMPLEXES INTRAVENTRICULAR CONDUCTION DELAY POSSIBLE LATE RAL MYOCARDIAL INFARCTION ABNORMAL ECG NO PREVIOUS TRACING DOCTOR: Mell Crenshaw Interpretating Date/Time 05/29/2017 10:50:54
== END 2017-05-28 22:17 | disposition home or self-care (01) ==
LOC: NEPD 18:14
DX: M17.0 Bilateral primary osteoarthritis of knee (principal); D61.818 Other pancytopenia; M79.632 Pain in left forearm; R94.31 Abnormal electrocardiogram [ECG] [EKG]; M79.631 Pain in right forearm; G47.00 Insomnia, unspecified; Z72.0 Tobacco use
CPT/HCPCS: 80053; 85025; 85610; 85730; 93005